=== PATIENT | male | born 1960 | race Caucasian/White ===

== ENCOUNTER 2023-12-27 02:00 | Outpatient (CLI) | payer OTHER | END 2023-12-27 02:15 | disposition home or self-care (01) | LOC: PPH VACUNA 02:00 | PROVIDERS: ATTEND Emergency Medicine Pediatric Emergency Medicine | DX: Z23 Encounter for immunization (principal) ==

== ENCOUNTER 2023-12-27 13:22 | Outpatient (CLI) | payer OTHER | END 2023-12-27 13:30 | disposition home or self-care (01) | LOC: RAD 13:22 | DX: Z02.1 Encounter for pre-employment examination (principal) ==

== ENCOUNTER 2023-12-27 13:42 | Outpatient (CLI) | payer OTHER ==
[2023-12-29 11:42] LABS: hav igm Negative (Negative); hcv Non Reactive (Non Reactive); hep b c Negative (Negative); hep b s ag Negative (Negative)
== END 2023-12-27 15:09 | disposition home or self-care (01) ==
LOC: LAB 13:42
PROVIDERS: ATTEND Specialist
DX: Z00.00 Encounter for general adult medical examination without abnormal findings (principal)